=== PATIENT | male | born 1930 | race Caucasian/White ===

== ENCOUNTER 2019-06-11 20:23 | Emergency (ER) | payer MEDICARE, OTHER ==
[~2019-06-11] VITALS: Ht 177.8 cm; Wt 62.1 kg
[2019-06-11] MEDS ORDERED: ONDANSETRON HCL/PF 4 MG/2 ML VIAL ONE (20:49)
[2019-06-11] MEDS ORDERED: MORPHINE SULFATE INJ 2 MG/ML DISP.SYRIN ONE (20:50)
--- NOTE | 2019-06-11 20:56 | NUR ---
PT BIB FAMILY WITH A C/O TRIP AND FALL AT HOME. PT COMPLAINED OF DIZZINESS, NAUSEA, NECK STIFFNESS, AND RFA SKIN TEAR/WOUND. PT STATED THAT HE HIT HIS HEAD, BUT DENIES KO. PT HAS AN AV SHUNT INPLACE. PT IS ON THE MONITOR AND CONTINUOUS PULSE OX. VSS. PT'S AND SON ARE AT THE BEDSIDE. DR FULTON IS AT THE BEDSIDE. PT DENIES PAIN AND NAUSEA AT THIS TIME. DRILL PUNCH OPERATOR IS AT THE BEDSIDE FOR BLOOD DRAW. IV CANCELLED BY . ALL MEDICATION HELD AT THIS TIME.
[2019-06-11 20:59] LABS: BASOPHILS % (AUTO) 0.6 % (0.0-2.0); EOSINOPHILS % (AUTO) 2.4 % (0.0-6.0); HEMATOCRIT 43 % (39-51); HEMOGLOBIN 14.2 g/dL (13.5-17.5); LYMPHOCYTES # (AUTO) 1.3 /CMM (0.8-4.8); LYMPHOCYTES % (AUTO) 18.7 % (20.0-44.0); MEAN CORPUSCULAR HGB CONC 33 g/dl (31.0-36.0); MEAN CORPUSCULAR VOLUME 100 fL (80-96); MONOCYTES # (AUTO) 0.5 /CMM (0.1-1.30); MONOCYTES % (AUTO) 7.7 % (2.0-12.0); NEUTROPHILS # (AUTO) 4.9 /CMM (1.8-8.9); NEUTROPHILS % (AUTO) 70.6 % (43.0-81.0); PLATELET COUNT (AUTO) 287 /CMM (150-450); RED BLOOD CELL COUNT(AUTO) 4.29 MIL/uL (4.5-6.0)
[2019-06-11] MEDS ORDERED: ONDANSETRON HCL/PF 4 MG/2 ML VIAL IVP ONE (21:00)
[2019-06-11] MEDS ORDERED: MORPHINE SULFATE INJ 2 MG/ML DISP.SYRIN IV ONE (21:00)
[2019-06-11] MEDS ORDERED: IV NS 0.9% 1,000 ML BAG IV ONE (21:00)
--- NOTE | 2019-06-11 21:04 | NUR ---
PT LEFT FOR CT VIA RNEY
[2019-06-11 21:08] LABS: CALCIUM, SERUM 9.4 mg/dL (8.5-10.1); CREATININE 1.3 mg/dL (0.6-1.3); POTASSIUM 4.5 mmol/L (3.5-5.1)
--- NOTE | 2019-06-11 21:42 | NUR ---
Note palmira in EDM - 06/11/19 at 2155 by [email or web address] PT C/O ABD PAIN. NOTIFIED. NEW ORDERS GIVEN.
--- NOTE | 2019-06-11 21:52 | NUR ---
PT APPEARS TO BE RESTING COMFORTABLY WITH NO S/S OF PAIN OR DISTRESS. PT'S FAMILY IS AT THE BEDSIDE. PT IS ON THE MONITOR AND CONTINUOUS PULSE OX.
--- NOTE | 2019-06-11 22:00 | NUR ---
DR FULTON IS AT THE BEDSIDE SPEAKING TO THE PT AND HIS FAMILY.
--- NOTE | 2019-06-11 22:05 | NUR ---
Patient discharged to home in stable condition. Written and verbal after care instructions given. Patient verbalizes understanding of instruction. VSS. PT AMBULATED OUT WITH A CANE AND WITH HIS SON'S ASSISTANCE. PT'S SON IS DRIVING THE PT AND HIS HOME. NAD NOTED.
[2019-06-11 22:06] VITALS: BP 166/71
== END 2019-06-11 22:07 | disposition home or self-care (01) ==
LOC: ER 20:29
DX: S16.1XXA Strain of muscle, fascia and tendon at neck level, initial encounter (principal); S00.03XA Contusion of scalp, initial encounter; S50.811A Abrasion of right forearm, initial encounter; I10 Essential (primary) hypertension; Z98.890 Other specified postprocedural states; W01.0XXA Fall on same level from slipping, tripping and stumbling without subsequent striking against object, initial encounter; Y93.89 Activity, other specified; Y92.89 Other specified places as the place of occurrence of the external cause; Y99.8 Other external cause status
CPT/HCPCS: 36415; 70450-TC; 72125-TC; 80048-TC; 85025-TC; G0480; J2270; J2405; J7030

== ENCOUNTER 2019-06-14 14:19 | Emergency (ER) | payer MEDICARE, OTHER ==
[~2019-06-14] VITALS: Ht 177.8 cm; Wt 63.0 kg
--- NOTE | 2019-06-14 14:30 | NUR ---
BIB FROM HOME, WITH C/O HEADACHE, N/V. FELL DOWN 2 DAYS AGO AND STILL HAVE PAIN. TO ER BED 9, HOOKED TO MONITOR. CHANGED TO HOSP GOWN, AWAITING MD BARBER.
--- NOTE | 2019-06-14 14:35 | NUR ---
DR LIMON AT BEDSIDE
--- NOTE | 2019-06-14 14:39 | NUR ---
DR LIMON AT BEDSIDE
[2019-06-14] MEDS ORDERED: ATOR10TA PO (15:40)
[2019-06-14] MEDS ORDERED: LISI-603 PO (15:40)
[2019-06-14] MEDS ORDERED: ONDANSETRON 4 MG TAB.RAPDIS SL ONE (16:00)
[2019-06-14] MEDS ORDERED: ONDANSETRON 4 MG TAB.RAPDIS ONE (16:04)
--- NOTE | 2019-06-14 16:19 | NUR ---
Patient discharged to home in stable condition. Written and verbal after care instructions given. Patient verbalizes understanding of instruction.
[2019-06-14 16:22] VITALS: BP 152/76
== END 2019-06-14 16:22 | disposition home or self-care (01) ==
LOC: ER 14:27
DX: S00.03XA Contusion of scalp, initial encounter (principal); S09.8XXA Other specified injuries of head, initial encounter; R11.2 Nausea with vomiting, unspecified; R51 Headache; I10 Essential (primary) hypertension; F10.10 Alcohol abuse, uncomplicated; Y90.9 Presence of alcohol in blood, level not specified; Z79.899 Other long term (current) drug therapy; W01.0XXA Fall on same level from slipping, tripping and stumbling without subsequent striking against object, initial encounter; Y93.89 Activity, other specified; Y92.89 Other specified places as the place of occurrence of the external cause; Y99.8 Other external cause status
CPT/HCPCS: 70450; 99284; Q0162

== ENCOUNTER 2019-06-23 19:37 | Inpatient (IN) | payer MEDICARE, OTHER ==
[~2019-06-23] VITALS: Ht 177.8 cm; Wt 64.4 kg
[~2019-06-23 19:37] MED LIST: ATOR10TA PO; LISI-603 PO
--- NOTE | 2019-06-23 19:54 | NUR ---
C/C GLF, HIT FACE ON TABLE, DENIES LOC, DIZZY AND CP STARTED AFTER FALL, TO ER BED 4, VITALS STABLE, EKG AT BEDSIDE
--- NOTE | 2019-06-23 20:15 | NUR ---
PT TAKEN TO CT
--- NOTE | 2019-06-23 20:35 | NUR ---
PT BACK FROM CT
--- NOTE | 2019-06-23 22:21 | NUR ---
CALLED NURSING SUP FOR ICU BED.
--- NOTE | 2019-06-23 22:25 | NUR ---
NURSING SUP GAVE ICU 256.
[2019-06-23 22:26] LABS: BASOPHILS # (AUTO) 0.1 /CMM (0.0-0.2); BASOPHILS % (AUTO) 0.7 % (0.0-2.0); EOSINOPHILS % (AUTO) 0.4 % (0.0-6.0); HEMATOCRIT 43 % (39-51); LYMPHOCYTES # (AUTO) 1.6 /CMM (0.8-4.8); LYMPHOCYTES % (AUTO) 10.7 % (20.0-44.0); MEAN CORPUSCULAR HGB CONC 33 g/dl (31.0-36.0); MEAN CORPUSCULAR VOLUME 100 fL (80-96); MONOCYTES # (AUTO) 1.1 /CMM (0.1-1.30); MONOCYTES % (AUTO) 6.9 % (2.0-12.0); NEUTROPHILS # (AUTO) 12.4 /CMM (1.8-8.9); NEUTROPHILS % (AUTO) 81.3 % (43.0-81.0); PLATELET COUNT (AUTO) 348 /CMM (150-450); WHITE BLOOD COUNT (AUTO) 15.2 K/uL (4.3-11.0)
[2019-06-23 22:34] LABS: CALCIUM, SERUM 9.3 mg/dL (8.5-10.1); CARBON DIOXIDE 26 mmol/L (21-32); CHLORIDE 106 mmol/L (98-107); CREATININE 1.5 mg/dL (0.6-1.3); GLUCOSE 116 mg/dL (74-106); POTASSIUM 4.1 mmol/L (3.5-5.1); SODIUM SERUM 141 mmol/L (136-145); UREA NITROGEN, BLOOD 24 mg/dL (7-18)
--- NOTE | 2019-06-23 23:27 | NUR ---
TRANSPORTED PT TO ICU VIA ACLS PROTOCOL
[2019-06-23 23:30] VITALS: BP 147/71
[2019-06-23] MEDS ORDERED: ACETAMINOPHEN 325 MG TABLET PO PRN (23:30)
[2019-06-23] MEDS ORDERED: ONDANSETRON HCL/PF 4 MG/2 ML VIAL IVP PRN (23:30)
[2019-06-23] MEDS: IV NS 0.9% 1,000 ML IV SCH (23:52)
[2019-06-24] VITALS (23 sets, daily range): BP systolic 99–155; BP diastolic 47–95
[2019-06-24] MEDS ORDERED: CEFTRIAXONE 1 G VIAL ONE (00:23)
[2019-06-24] MEDS: CEFTRIAXONE 2 G in IV NS 0.9% 100 ML IV SCH ×2 (00:24→23:35)
--- NOTE | 2019-06-24 01:12 | NUR ---
SATURATION EQUIPMENT OPERATOR PT WAS ADMITTED FROM ER WITH DIAGNOSIS S/P FALL, SUBDURAL HEMATOMA. PT IS AWAKE, ALERT, ORIENTED X 3, PLEASANT & COOPERATIVE. HARD OF HEARING. SPEECH IS CLEAR, MOVES ALL EXTREMITIES, ARMS ARE STRONG, LEGS ARE WEAKER. NO MOTOR OR SENSORY DEFICIT. WANG. VSS, AFEBRILE, SCOPE-SR WITH BBB, OCC. PAC'S & PVC'S. CT HEAD-BILATERAL SUBDURAL FLUID COLLECTION. FRONTAL LOBE 5 MM. -ACUTE SUBDURAL HEMORRHAGES. 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 NEUROSURGEON D-R BADR CONSULTATION IN A.M. PT ALSO HAS RIGHT NASAL BONE FRACTURE WITH MILD SOFT TISSUE SWELLING OVER NASAL BRIDGE. VOIDS SUFFICIENT AMT. OF CLEAR URINE. MAIN IV STARTED. GIVEN ROCEPHIN 2 G. IVPB. WILL CONTINUE CLOSE MONITORING.
[2019-06-24 05:07] LABS: BASOPHILS # (AUTO) 0.1 /CMM (0.0-0.2); BASOPHILS % (AUTO) 0.6 % (0.0-2.0); EOSINOPHILS % (AUTO) 0.6 % (0.0-6.0); HEMATOCRIT 42 % (39-51); HEMOGLOBIN 13.8 g/dL (13.5-17.5); LYMPHOCYTES # (AUTO) 1.4 /CMM (0.8-4.8); LYMPHOCYTES % (AUTO) 11.9 % (20.0-44.0); MEAN CORPUSCULAR HGB CONC 33 g/dl (31.0-36.0); MEAN CORPUSCULAR VOLUME 100 fL (80-96); MONOCYTES % (AUTO) 8.4 % (2.0-12.0); NEUTROPHILS # (AUTO) 9.3 /CMM (1.8-8.9); NEUTROPHILS % (AUTO) 78.5 % (43.0-81.0); PLATELET COUNT (AUTO) 326 /CMM (150-450); RED BLOOD CELL COUNT(AUTO) 4.16 MIL/uL (4.5-6.0); WHITE BLOOD COUNT (AUTO) 11.8 K/uL (4.3-11.0)
[2019-06-24 05:33] LABS: ALANINE AMINOTRANSFERASE 23 U/L (12-78); ALBUMIN 3.5 g/dL (3.4-5.0); ALKALINE PHOSPHATASE 57 U/L (46-116); ASPARTATE AMINOTRANSFERASE 38 U/L (15-37); BILIRUBIN,TOTAL 0.5 mg/dL (0.2-1.0); CALCIUM, SERUM 9.1 mg/dL (8.5-10.1); CARBON DIOXIDE 27 mmol/L (21-32); CHLORIDE 107 mmol/L (98-107); CREATININE 1.4 mg/dL (0.6-1.3); GLUCOSE 99 mg/dL (74-106); MAGNESIUM 2.1 mg/dL (1.8-2.4); PHOSPHORUS 3.2 mg/dL (2.5-4.9); POTASSIUM 4.6 mmol/L (3.5-5.1); SODIUM SERUM 142 mmol/L (136-145); TOTAL PROTEIN, SERUM 6.6 g/dL (6.4-8.2); UREA NITROGEN, BLOOD 21 mg/dL (7-18)
[2019-06-24 06:55] LABS: THYROID STIMULATING HORMONE 0.806 uIU/mL (0.358-3.74)
--- NOTE | 2019-06-24 07:20 | NUR ---
KNITTING SUPERVISOR PT WAS TAKEN FOR CONTROL CT-SCAN OF THE HEAD. NO SIGNIFICANT CHANGE IN BILATERAL SUBDURAL COLLECTIONS. PT IS COMFORTABLE, NO PAIN, SOB OR ANY OTHER DISTRESS. PT IS STILL NPO. NO MOTOR OR SENSORY DEFICIT. WANG. REPOSITIONED SELF. HOB KEPT UP 45 DEGREE. LUNGS CLEAR, RA, SCOPE-SR WITH BBB. URINE OUTPUT IS ADEQUATE. PT I S SUPPOSED TO HAVE SWALLOW EVALUATION, 2 D ECHO, CAROTID DUPLEX IMAGING & D-R BADR CONSULTATION. REPORT GIVEN TO AMILCAR DAY SHIFT RN.
[2019-06-24] MEDS: LISINOPRIL (20MG) 20 MG TABLET PO SCH (08:31)
[2019-06-24] MEDS: ATORVASTATIN 10 MG TABLET PO SCH (08:31)
[2019-06-24] MEDS: PANTOPRAZOLE 40 MG VIAL IV SCH (08:31)
--- NOTE | 2019-06-24 10:43 | NUR ---
RN NOTE 0715: Received patient awake, A/Ox4, tolerated room air. Monitored neuro closely, PERRLA 3 brisk, no deficit on 4 extremities. PIVs intact, IVF infusing as ordered. [id number]'s on the monitor. Noted with dry blood on the nose, offered ice pack. No c/o pain at this time. 0830: Rendered orthostatic, SBP 130 sitting, 115 standing. 1000: S/Pk ST, to start on Pureed diet with Ensure per patient request at lunch. 1015: S/E by Dr. Faye, awaiting Dr. Zaldivar, will F/U neuro Sx consult. 1040: S/E by PT, able to use walker with stand by assist.
[2019-06-24] MEDS: ENSURE ENLIVE CHOC 237 ML CAN PO SCH ×2 (12:00→17:00)
[2019-06-24] MEDS: LEVETIRACETAM (500MG) 500 MG in IV NS 0.9% 100 ML IV SCH (17:17)
--- NOTE | 2019-06-24 19:30 | NUR ---
ICU NOTES RECEIVED PT SLEEPING BUT AROUSES EASILY,FOLLOWS COMMANDS.ORIENTED X3.MONITOR SHOWS NSR W/ OUT ECTOPICS.
[2019-06-24] MEDS: IV NS 0.9% 1,000 ML IV SCH (20:17)
--- NOTE | 2019-06-24 21:07 | NUR ---
ICU NOTES SAT ON SIDE OF BED TO VOID,THEN BACK TO BED.BED ALARM ON BED IN LOW POSITION,CALL LIGHT W/IN REACH,REMINDED PT TO CALL NURSE WHEN GETTING OOB.ORIENTED X3
[2019-06-24] MEDS ORDERED: LEVETIRACETAM (500MG) 500 MG in IV NS 0.9% 100 ML IV SCH (23:30)
[2019-06-25] VITALS (12 sets, daily range): BP systolic 98–141; BP diastolic 44–69
--- NOTE | 2019-06-25 00:40 | NUR ---
ICU NOTES STOOD UP AT BEDSIDE TO VOID.NO EURO DEFICIT.MONITOR NSR.
--- NOTE | 2019-06-25 03:00 | NUR ---
ICU NOTES FOUNR PT EXERCISING BOTH ARMS UP AND DOWN.LOWER EXTREMITIES NORMAL COMPARED EARLIER.OFFERED BATH BUT REFUSED
[2019-06-25 04:31] LABS: BASOPHILS # (AUTO) 0.1 /CMM (0.0-0.2); BASOPHILS % (AUTO) 0.7 % (0.0-2.0); EOSINOPHILS % (AUTO) 1.3 % (0.0-6.0); HEMATOCRIT 40 % (39-51); HEMOGLOBIN 13.4 g/dL (13.5-17.5); LYMPHOCYTES # (AUTO) 1.5 /CMM (0.8-4.8); LYMPHOCYTES % (AUTO) 13.6 % (20.0-44.0); MEAN CORPUSCULAR HGB CONC 34 g/dl (31.0-36.0); MEAN CORPUSCULAR VOLUME 100 fL (80-96); MONOCYTES # (AUTO) 1.2 /CMM (0.1-1.30); MONOCYTES % (AUTO) 10.8 % (2.0-12.0); NEUTROPHILS # (AUTO) 8.1 /CMM (1.8-8.9); NEUTROPHILS % (AUTO) 73.6 % (43.0-81.0); PLATELET COUNT (AUTO) 290 /CMM (150-450); WHITE BLOOD COUNT (AUTO) 10.9 K/uL (4.3-11.0)
[2019-06-25 04:41] LABS: CALCIUM, SERUM 8.9 mg/dL (8.5-10.1); CREATININE 1.3 mg/dL (0.6-1.3); POTASSIUM 4.2 mmol/L (3.5-5.1)
[2019-06-25] MEDS: LEVETIRACETAM (500MG) 500 MG in IV NS 0.9% 100 ML IV SCH (05:30)
--- NOTE | 2019-06-25 06:00 | NUR ---
ICU NOTES STANDS UP AT BEDSIDE TO UUSE URINAL,NO WEAKNESS NOTED ON LOWER LEGS,STRONG HAND GRASPS. NO NEURO DEFICIT,SPEECH IS CLEAR,STRONG BILATERAL HAND GRASPS,ALERT ORIENTED X4.PT APOLOGIZED TO ME FOR BEING MEAN AND CRANKY,STATES[IT'S HARD TO NOT GET ENOUGH SLEEP CHELSI.DURING THE LAST 2DAYS.]RE- ASSURED PT. THAT I MIGHT BE THE SAME WAY.
--- NOTE | 2019-06-25 07:15 | NUR ---
ICU NOTES REPORT AND CARE OF PT GIVEN TO AMILCAR Hilton
[2019-06-25] MEDS: ENSURE ENLIVE CHOC 237 ML CAN PO SCH ×2 (08:22→11:56)
[2019-06-25] MEDS: PANTOPRAZOLE 40 MG VIAL IV SCH (08:30)
[2019-06-25] MEDS: ATORVASTATIN 10 MG TABLET PO SCH (08:30)
[2019-06-25] MEDS: LISINOPRIL (20MG) 20 MG TABLET PO SCH (08:31)
--- NOTE | 2019-06-25 13:00 | NUR ---
RN NOTE 0715: Received patient resting in bed. A/Ox4/ intact. IVF infusing as ordered. No c.o pain or any discomfort. VSS. On frequent neurocheck, no deficit noted. 1030: S/E by Isidro BRONSON, patient has no deficit and wanting to go to his primary neurologist. Obtained order to DC. 1230: Discussed with patient re: the DC instructions and advised to go to his PCP, primary Neurologist and Neurosurgery, verbalized understanding, he has appointment today to his neuro Sx @ 1430. Requested to walk, he was able to walk arounf the unit with FWW with standby assist. 1250: Removed PIVs, no bleeding noted, applied pressure and dry dressing. Helped on changing to regular clothes. Picked up by via private car. Accompanied by me to their private car and helped on getting in.
== END 2019-06-25 13:08 | disposition home or self-care (01) | DRG 85 ==
LOC: ER 19:39 → ICU 22:27
PROVIDERS: ADMIT Registered Nurse; ATTEND Nurse Practitioner Acute Care
DX: S06.5X0A Traumatic subdural hemorrhage without loss of consciousness, initial encounter (principal); N17.0 Acute kidney failure with tubular necrosis; N39.0 Urinary tract infection, site not specified; W18.30XA Fall on same level, unspecified, initial encounter; Y92.89 Other specified places as the place of occurrence of the external cause; E86.0 Dehydration; S02.2XXA Fracture of nasal bones, initial encounter for closed fracture; R55 Syncope and collapse; R07.9 Chest pain, unspecified; R56.9 Unspecified convulsions; R47.02 Dysphasia; D72.829 Elevated white blood cell count, unspecified; I10 Essential (primary) hypertension; E78.5 Hyperlipidemia, unspecified; R53.1 Weakness; Z98.2 Presence of cerebrospinal fluid drainage device
CPT/HCPCS: 36415; 70450-TC; 70486-TC; 71045-TC; 72125-TC; 80048-TC; 80053-TC; 83735-TC; 84100-TC; 84443-TC; 84484-TC; 85025-TC; 85730-TC; 87081-TC; 92526; 92611-TC; 93307-TC; 93880-TC; 97116-TC; 97530-TC; C9113; G0378; J0696; J1953; J7030

== ENCOUNTER 2019-09-07 16:29 | Emergency (ER) | payer MEDICARE, OTHER ==
[~2019-09-07] VITALS: Ht 177.8 cm; Wt 63.5 kg
--- NOTE | 2019-09-07 16:35 | NUR ---
BIB RA, DIZZINESS AND WEAKNESS X 1 HR WHILE AT A [facility],PADDY C/O ON & OFF EPISODES OF CONFUSION. PATIENT A/OX4, BREATHING EVEN AND UNLABORED, CHANGED INTO GOWN, NO DISTRESS NOTED, ATTACHED TO THE AIRFIELD SERVICES OFFICER.
--- NOTE | 2019-09-07 16:40 | NUR ---
DR. OCAMPO AT BEDSIDE FOR EVAL.
--- NOTE | 2019-09-07 16:45 | NUR ---
IV LINE ESTABLISHED, BLOOD DRAWN AND SENT TO LAB.
--- NOTE | 2019-09-07 16:50 | NUR ---
DR. OCAMPO AT BEDSIDE FOR EVAL
[2019-09-07] MEDS ORDERED: IV NS 0.9% 500 ML BAG IV ONE ×2 (17:00→20:30)
--- NOTE | 2019-09-07 17:02 | NUR ---
CODE STROKE ACTIVATED
[2019-09-07 17:04] LABS: BASOPHILS # (AUTO) 0.1 /CMM (0.0-0.2); BASOPHILS % (AUTO) 1.4 % (0.0-2.0); EOSINOPHILS % (AUTO) 4.2 % (0.0-6.0); HEMATOCRIT 37 % (39-51); HEMOGLOBIN 12.3 g/dL (13.5-17.5); LYMPHOCYTES # (AUTO) 1.8 /CMM (0.8-4.8); LYMPHOCYTES % (AUTO) 23.5 % (20.0-44.0); MEAN CORPUSCULAR HGB CONC 33 g/dl (31.0-36.0); MEAN CORPUSCULAR VOLUME 99 fL (80-96); MONOCYTES # (AUTO) 0.7 /CMM (0.1-1.30); MONOCYTES % (AUTO) 8.7 % (2.0-12.0); NEUTROPHILS # (AUTO) 4.7 /CMM (1.8-8.9); NEUTROPHILS % (AUTO) 62.2 % (43.0-81.0); PLATELET COUNT (AUTO) 328 /CMM (150-450); RED BLOOD CELL COUNT(AUTO) 3.75 MIL/uL (4.5-6.0); WHITE BLOOD COUNT (AUTO) 7.5 K/uL (4.3-11.0)
--- NOTE | 2019-09-07 17:04 | NUR ---
CALLED TELEMED, BRIE AMAYA MD
--- NOTE | 2019-09-07 17:15 | NUR ---
PATIENT CAME BACK FROM CT.
[2019-09-07] MEDS ORDERED: LISI10TA5 PO (17:19)
[2019-09-07] MEDS ORDERED: ASPI-605 PO (17:19)
[2019-09-07 17:23] LABS: CALCIUM, SERUM 9.1 mg/dL (8.5-10.1); CARBON DIOXIDE 30 mmol/L (21-32); CHLORIDE 106 mmol/L (98-107); CREATININE 1.6 mg/dL (0.6-1.3); GLUCOSE 109 mg/dL (74-106); POTASSIUM 5.3 mmol/L (3.5-5.1); SODIUM SERUM 142 mmol/L (136-145); UREA NITROGEN, BLOOD 32 mg/dL (7-18)
--- NOTE | 2019-09-07 17:23 | NUR ---
NIHSS SCORE 0. NO S/SX OF SLURRED SPEECH, WEAKNESS ON ALEXSANDER AND LOWER EXTREMITIES, NO FACIAL ASSYMETRY.
--- NOTE | 2019-09-07 17:23 | NUR ---
ER SPOKE TO TELE STROKE DR
--- NOTE | 2019-09-07 17:25 | NUR ---
SWALLOW SCREEN EVAL DONE, PASSED.
--- NOTE | 2019-09-07 17:25 | NUR ---
DR. AMOR TELEWILL ON MONITOR TO ASSESS PATIENT
[2019-09-07 17:28] LABS: ALANINE AMINOTRANSFERASE 19 U/L (12-78); ALBUMIN 3.8 g/dL (3.4-5.0); ALCOHOL, BLOOD < 3 mg/dL (0-0); ALKALINE PHOSPHATASE 58 U/L (46-116); ASPARTATE AMINOTRANSFERASE 16 U/L (15-37); BILIRUBIN,DIRECT 0.1 mg/dL (0.0-0.2); BILIRUBIN,TOTAL 0.4 mg/dL (0.2-1.0); TOTAL PROTEIN, SERUM 6.8 g/dL (6.4-8.2)
[2019-09-07 17:29] LABS: ACETAMINOPHEN < 10 ug/ml (10-30); SALICYLATE 1.2 mg/dL (2.8-20.0)
[2019-09-07 17:33] LABS: SERUM AMMONIA < 10 umol/L (11-32); THYROID STIMULATING HORMONE 1.368 uIU/mL (0.358-3.74)
--- NOTE | 2019-09-07 17:37 | NUR ---
DR OCAMPO SPEAKING WITH NEURO FANALE
--- NOTE | 2019-09-07 17:38 | NUR ---
DR. AMOR CALLED DR. OCAMPO AND STATED NO TPA RECOMMENDED AT THIS TIME.
--- NOTE | 2019-09-07 18:04 | NUR ---
CALLED OFFICE OF DR CLINTON, PAGED BIOSTATISTICIAN MD PATEL
--- NOTE | 2019-09-07 18:23 | NUR ---
[facility] PAGING RN NEW GRADUATE DR PATEL FOR CONSULT
[2019-09-07] MEDS ORDERED: FUROSEMIDE 20 MG/2 ML VIAL ONE (18:26)
[2019-09-07] MEDS ORDERED: LEVETIRACETAM (500MG) 1,000 MG in IV NS 0.9% 100 ML IV SCH (18:30)
[2019-09-07] MEDS ORDERED: FUROSEMIDE 20 MG/2 ML VIAL IV ONE (18:30)
--- NOTE | 2019-09-07 18:45 | NUR ---
CALLED [facility], LEFT VOICEMAIL FOR REQUEST
--- NOTE | 2019-09-07 18:50 | NUR ---
CANCELLED [facility]
[2019-09-07 19:11] LABS: APPEARANCE,URINE Clear (CLEAR); BILIRUBIN,URINE Negative (NEGATIVE); BLOOD, URINE Negative Ery/uL (NEGATIVE); COLOR,URINE Yellow (YELLOW); KETONES,URINE Negative (NEGATIVE); LEUKOCYTE ESTERASE ,URINE Negative (NEGATIVE); NITRITE, URINE Negative (NEGATIVE); PH,URINE 5.5 (5.0-8.0); PROTEIN,URINE Negative (NEGATIVE); UGLUCOSE Negative (NEGATIVE); UROBILINOGEN,URINE 0.2 EU/dL (0.2)
--- NOTE | 2019-09-07 19:15 | NUR ---
PT WILL BE TRANSFERRED TO [facility] ACCEPTED TO DR MANCILLA, PENDING ROOM ASSIGNMENT
--- NOTE | 2019-09-07 21:42 | NUR ---
CALLED [facility], PER WENDY VORA, NURSING SUP WILL RELEASE BED SHORTLY AND WILL CALL BACK
--- NOTE | 2019-09-08 00:15 | NUR ---
RECEIVED CALL FROM TRANSFER. ACCEPTING MD: DR. LORENZO ETA: 30 MIN [facility] ROOM: 44-14 BED 1 REPORT: [phone]
[2019-09-08 00:59] VITALS: BP 127/67
--- NOTE | 2019-09-08 01:10 | NUR ---
REPOTR GIVEN TO NNAMDI PEDRO AT [facility] FOR [facility].
--- NOTE | 2019-09-08 01:25 | NUR ---
REPORT GIVEN TO TRANSPORT TEAM FOR [facility]. AND TRANSFERRING RESPONSIBILITIES.
== END 2019-09-08 01:27 | disposition short-term general hospital (02) ==
LOC: ER 16:34
DX: G96.0 Cerebrospinal fluid leak (principal); E87.5 Hyperkalemia; N28.9 Disorder of kidney and ureter, unspecified; R79.89 Other specified abnormal findings of blood chemistry; I10 Essential (primary) hypertension; E78.5 Hyperlipidemia, unspecified; Z98.890 Other specified postprocedural states; Z79.82 Long term (current) use of aspirin; Z79.899 Other long term (current) drug therapy
CPT/HCPCS: 36415; 70450; 71045; 80048; 80076; 80307; 80329; 81001; 82140; 82962 ×2; 83605; 84145; 84443; 84484; 85025; 85730; 86850; 87040 ×2; 87081; 87086; 93005 ×2; 96365; 96375; 99291; G0480; J1940; J1953; J7030; J7040 ×2; 81000-TC

== ENCOUNTER 2020-09-27 19:57 | Emergency (ER) | payer MEDICARE, BC ==
[~2020-09-27] VITALS: Ht 177.8 cm; Wt 59.9 kg
[~2020-09-27 19:57] MED LIST changes: +ASPI-605 PO; -LISI-603 PO; +LISI10TA29 PO
--- NOTE | 2020-09-27 20:28 | NUR ---
TECH AT BEDSIDE FOR WOUND CLEANING.
[2020-09-27 21:14] VITALS: BP 129/77
--- NOTE | 2020-09-27 21:15 | NUR ---
PATIENT PROVIDED WITH A SURGICAL BOOT.
--- NOTE | 2020-09-27 21:23 | NUR ---
Patient discharged to home in stable condition. Written and verbal after care instructions given. Patient verbalizes understanding of instruction.
== END 2020-09-27 21:24 | disposition home or self-care (01) ==
LOC: ER 19:59
DX: S92.252A Displaced fracture of navicular [scaphoid] of left foot, initial encounter for closed fracture (principal); S51.812A Laceration without foreign body of left forearm, initial encounter; I10 Essential (primary) hypertension; Z98.890 Other specified postprocedural states; Z79.899 Other long term (current) drug therapy; Z79.82 Long term (current) use of aspirin; W01.0XXA Fall on same level from slipping, tripping and stumbling without subsequent striking against object, initial encounter; Y93.89 Activity, other specified; Y92.89 Other specified places as the place of occurrence of the external cause; Y99.8 Other external cause status
CPT/HCPCS: 73630-TC